=== PATIENT | male | born 1985 | race Caucasian/White ===

== ENCOUNTER 2019-06-22 12:48 | Emergency (ER) | payer OTHER ==
[~2019-06-22] VITALS: Ht 175.3 cm; Wt 74.0 kg
[2019-06-22] MEDS ORDERED: CYCL10TA (12:56)
[2019-06-22] MEDS ORDERED: IBUP80TA (12:56)
[2019-06-22] MEDS ORDERED: GABA-1171 (12:56)
[2019-06-22] MEDS ORDERED: LIDOCAINE 5% (LIDODERM) PATCH TD ONE (13:45)
--- NOTE | 2019-06-22 14:00 | REP ---
Clinical: Right upper extremity radiculopathy. Technique: Axial noncontrast images from the skull base to the thoracic inlet with coronal and sagittal re-formations. Findings: Early advanced degenerative disc osteophyte complex at C4-5 includes anterior and posterior osteophytes, endplate sclerosis, and minimal disc space narrowing. Moderate multilevel degenerative changes throughout the remainder of the examination with subtle early spurring and mild disc space narrowing primarily noted at the C5-6 and C6-7. Alignment is maintained. No acute fracture / compression injury or subluxation is appreciated. Spinal canal is grossly patent and without obvious canal stenosis. Paravertebral soft tissues are within normal limits. Impression: Moderate/early advanced degenerative spondylosis centered at C4-5. Electronically Signed by Leodan Katz MD 06/22/2019 01:51 P
[2019-06-22] MEDS ORDERED: LIDO5DIS41 TOP (14:01)
[2019-06-22 14:15] VITALS: BP 159/89
[2019-06-22] MEDS ORDERED: NORCO, ANEXSIA 5/325MG TABLET (HYDROcodone/ACETAMINOPHEN) PO ONE (14:15)
[2019-06-22] MEDS ORDERED: **NOTE PATIENT COMMENT** MISC XX SCH (21:00)
== END 2019-06-22 14:18 | disposition home or self-care (01) ==
LOC: M ED 12:48
DX: M25.511 Pain in right shoulder (principal); M79.601 Pain in right arm; M47.892 Other spondylosis, cervical region